=== PATIENT | male | born 1940 | race Caucasian/White ===

== ENCOUNTER 2019-11-14 06:08 | Emergency (ER) | payer MEDICARE ==
--- NOTE | 2019-11-14 06:41 | EDM.PDOC ---
<OfficerPete - Last Filed: 11/14/19 06:38> ED HPI GENERAL MEDICAL PROBLEM - General Chief Complaint: Syncope Stated Complaint: MEDICAL [facility] Time Seen by Provider: 11/14/19 06:30 Source of Information: Reports: Patient, RN Notes Reviewed History Limitations: Reports: No Limitations - History of Present Illness INITIAL COMMENTS - FREE TEXT/NARRATIVE: 79-year-old gentleman presents emergency department a complaint of syncopal event, he states he did not fully pass out but he lost his balance and hit the ground he did not injure himself. He states prior to the event he was dizzy it happened early this morning just prior to going to the bathroom. This is a new event for him. He feels all of his symptoms now have resolved he feels he is back to his normal state. No symptoms prior to this morning Right Shoulder Pain Score (Numeric/FACES): 3 - Related Data Allergies Allergy/AdvReac Type Severity Reaction Status Date / Time No Known Allergies Allergy Verified 11/14/19 06:09 Home Meds: Home Meds Aspirin 1 tab PO DAILY 11/14/19 [History] Metoprolol Succinate 12.5 mg PO DAILY 11/14/19 [History] Simvastatin 1 tab PO DAILY 11/14/19 [History] Triamterene/Hydrochlorothiazid [Triamterene-HCTZ 37.5-25 MG] 0.5 tab PO DAILY [History] Past Medical History HEENT History: Reports: Cataract, Impaired Vision Cardiovascular History: Reports: High Cholesterol, Hypertension, Other (See Below) Other Cardiovascular History: 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 Gastrointestinal History: Reports: GI Bleed, Other (See Below) Musculoskeletal History: Reports: Arthritis, Fracture Oncologic (Cancer) History: Reports: Prostate - Past Surgical History HEENT Surgical History: Reports: Cataract Surgery GI Surgical History: Reports: Colonoscopy Male Surgical History: Reports: Prostatectomy Neurological Surgical History: Reports: Laminectomy Social & Family History - Family History Family Medical History: Unobtainable - Tobacco Use Smoking Status *Q: Never Smoker - Caffeine Use Caffeine Use: Reports: Coffee - Alcohol Use Days Per Week of Alcohol Use: 7 Number of Drinks Per Day: 1 Total Drinks Per Week: 7 - Recreational Drug Use Recreational Drug Use: No ED ROS GENERAL - Review of Systems Review Of Systems: See Below Constitutional: Reports: No Symptoms HEENT: Reports: Vertigo Respiratory: Reports: No Symptoms Cardiovascular: Reports: Syncope GI/Abdominal: Reports: No Symptoms : Reports: No Symptoms Musculoskeletal: Reports: No Symptoms Neurological: Reports: Syncope - Physical Exam Exam: See Below Exam Limited By: No Limitations General Appearance: Alert, WD/WN, No Apparent Distress Eye Exam: Bilateral Eye: Normal Inspection Head Exam: Atraumatic, Normocephalic Neck: Normal Inspection, Supple, Non-Tender, Full Range of Motion Respiratory/Chest: No Respiratory Distress, Lungs Clear, Normal Breath Sounds, No Accessory Muscle Use, Chest Non-Tender Cardiovascular: Regular Rate, Rhythm, No Murmur GI/Abdominal: Soft, Non-Tender Neuro Exam (Abbreviated): Alert, Oriented, Normal Cognition, No Motor/Sensory Deficits Course - Vital Signs Last Recorded V/S: Last Vital Signs Temp 36.8 C 11/14/19 06:13 Pulse 60 11/14/19 06:13 Resp 16 11/14/19 06:13 BP 145/63 H 11/14/19 06:13 Pulse Ox 100 11/14/19 06:13 Orthostatic Blood Pressure [ 119/51 Standing] Orthostatic Blood Pressure [ 124/49 Sitting] Orthostatic Blood Pressure [ 131/68 Supine] - Orders/Labs/Meds Orders: Active Orders 24 hr Category Date Time Status Cardiac Monitoring [RC] .As Directed Care 11/14/19 06:36 Active EKG Documentation Completion [RC] ASDIRECTED Care 11/14/19 06:37 Active EKG 12 Lead [EK] Stat Ther 11/14/19 06:37 Ordered Labs: Laboratory Tests 11/14/19 11/14/19 11/14/19 Range/Units 06:36 06:50 06:50 WBC 5.9 (4.5-11.0) K/uL RBC 3.81 L (4.30-5.90) M/uL Hgb 11.8 L (12.0-15.0) g/dL Hct 36.0 L (40.0-54.0) % MCV 95 (80-98) fL MCH 31 (27-31) pg MCHC 33 (32-36) % Plt Count 147 L (150-400) K/uL Neut % (Auto) 78 H (36-66) % Lymph % (Auto) 14 L (24-44) % [place] % (Auto) 7 H (2-6) % Eos % (Auto) 1 L (2-4) % Baso % (Auto) 0 (0-1) % D-Dimer, Quantitative 4460 H (0.0-400.0) ng/mL Sodium 139 L (140-148) mmol/L Potassium 4.6 (3.6-5.2) mmol/L Chloride 104 (100-108) mmol/L Carbon Dioxide 27 (21-32) mmol/L Anion Gap 12.6 (5.0-14.0) mmol/L BUN 42 H (7-18) mg/dL Creatinine 1.0 (0.8-1.3) mg/dL Est Cr Clr Drug Dosing 52.10 mL/min Estimated GFR (MDRD) > 60 (>60) Glucose 93 (74-106) mg/dL Calcium 8.6 (8.5-10.1) mg/dL Troponin I < 0.017 (0.000-0.056) ng/mL Departure - Departure Disposition: Home, Self-Care 01 Clinical Impression: Dehydration, Orthostatic hypotension - Discharge Information Instructions: Dehydration, Adult, [id number], Orthostatic Hypotension Referrals: PCP,None [Primary Care Provider] - Forms: ED Department Discharge Additional Instructions: An extra glass of water with each meal today. Careful with suddenly standing after sitting or lying down. Sepsis Event Note - Evaluation Sepsis Screening Result: No Definite Risk - Focused Exam Vital Signs: Vital Signs Temp Pulse Resp BP Pulse Ox 11/14/19 06:13 36.8 C 60 16 145/63 H 100 Date Exam was Performed: 11/14/19 Time Exam was Performed: 06:38 <Alan Bush - Last Filed: 11/14/19 07:59> ED HPI GENERAL MEDICAL PROBLEM - History of Present Illness INITIAL COMMENTS - FREE TEXT/NARRATIVE: officer and the patient over to me. EKG and laboratory studies are reviewed and there is no significant abnormality. Patient is orthostatic on testing and his mucous membranes are dry. Screening neurologic exam shows no focal abnormality. I feel the patient is dehydrated and have instructed him to try to take an extra glass of water with every meal. I do not feel any further testing is necessary. Onset Date: 11/14/19 Onset Time: 06:00 Severity: Moderate Improves with: Reports: None Context: Reports: Other (Immediately on arising starting to walk to the bathroom , he fainted.) Associated Symptoms: Reports: Loss of Appetite (Did not have anything to eat or drink prior to arrival). Denies: Confusion, Chest Pain, Fever/Chills, Headaches , Nausea/Vomiting, Shortness of Breath ED ROS GENERAL - Review of Systems Constitutional: Denies: Fever, Night Sweats HEENT: Reports: No Symptoms Respiratory: Denies: Shortness of Breath, Pleuritic Chest Pain Cardiovascular: Reports: Lightheadedness. Denies: Chest Pain, Dyspnea on Exertion, Palpitations Endocrine: Denies: Fatigue GI/Abdominal: Denies: Abdominal Pain : Denies: Flank Pain Skin: Denies: Jaundice, Bruising, Wound Neurological: Denies: Confusion, Headache, Paresthesia, Trouble Speaking, Change in Speech Psychiatric: Reports: No Symptoms Hematologic/Lymphatic: Denies: Anemia, Easy Bleeding - Physical Exam Exam: See Below Ears: Normal External Exam Nose: No: Clear Rhinorrhea Throat/Mouth: Other (Dry mucous membranes) Head Exam: No: Scalp Ecchymosis, Scalp Hematoma Neuro Exam (Abbreviated): Other (Symmetric facial grimace. No pronator drift. Able to do [id number] without problem.). No: Confused, Sensory/Motor Deficit EKG INTERPRETATION EKG Date: 11/14/19 Time: 06:40 Rhythm: NSR Rate (Beats/Min): 58 ST-T: Normal QT: Normal Departure - Departure Time of Disposition: 08:00 Condition: Good - Discharge Information *PRESCRIPTION DRUG MONITORING PROGRAM REVIEWED*: No Sepsis Event Note - Focused Exam Date Exam was Performed: 11/14/19 Time Exam was Performed: 07:56
== END 2019-11-14 08:14 | disposition home or self-care (01) ==
LOC: JP.ED 06:08
DX: I95.1 Orthostatic hypotension (principal); E86.0 Dehydration; I10 Essential (primary) hypertension; M19.90 Unspecified osteoarthritis, unspecified site; E78.00 Pure hypercholesterolemia, unspecified; Z79.82 Long term (current) use of aspirin; Z79.899 Other long term (current) drug therapy
CPT/HCPCS: 36415; 80048; 84484; 85025; 85379; 93005; 93010; 99283; 99284-25